=== PATIENT | male | born 1995 | race African-American/Black ===

== ENCOUNTER 2020-09-15 05:28 | Emergency (ER) | payer SELFPAY ==
[~2020-09-15] VITALS: Ht 177.8 cm; Wt 117.9 kg
--- NOTE | 2020-09-15 05:31 | NUR ---
AMBULATORY TO LOBBY
--- NOTE | 2020-09-15 05:35 | NUR ---
SEEN AND EXAMINED BY LUIS WITH ORDER, CARRIED OUT
[2020-09-15 05:37] VITALS: BP 121/90
[2020-09-15] MEDS ORDERED: IBUPROFEN 600 MG TAB PO ONE (05:55)
--- NOTE | 2020-09-15 05:55 | NUR ---
MEDICATED PER [facility] ORDER, TOLERATED WELL.
--- NOTE | 2020-09-15 06:30 | NUR ---
RESULTS BACK AND NOTED BY ERMD AND FOR D/C
[2020-09-15 06:40] VITALS: BP 121/90
--- NOTE | 2020-09-15 06:40 | NUR ---
Patient discharged with v/s stable. Written and verbal after care instructions given and explained. Patient alert, oriented and verbalized understanding of instructions. Ambulatory with steady gait. All questions addressed prior to discharge. ID band removed. Patient advised to follow up with PMD. Rx of MAGNESIUM CITRATE given. Patient educated on indication of medication including possible reaction and side effects. Opportunity to ask questions provided and answered.
== END 2020-09-15 06:40 | disposition home or self-care (01) ==
LOC: MED 05:28
DX: R10.9 Unspecified abdominal pain (principal); Z88.2 Allergy status to sulfonamides
CPT/HCPCS: 74021; 99283